=== PATIENT | male | born 1995 | race Caucasian/White ===

== ENCOUNTER 2024-10-10 17:32 | Emergency (ER) | payer OTHER | END 2024-10-10 20:25 | disposition home or self-care (01) | LOC: MW.ED 17:32 | DX: J32.9 Chronic sinusitis, unspecified (principal); F17.210 Nicotine dependence, cigarettes, uncomplicated; Z88.0 Allergy status to penicillin; Z88.1 Allergy status to other antibiotic agents; Z88.8 Allergy status to other drugs, medicaments and biological substances; Z88.2 Allergy status to sulfonamides; Z90.49 Acquired absence of other specified parts of digestive tract | CPT/HCPCS: 87428-QW; 87651-QW; 99284 ==